=== PATIENT | male | born 1960 | race Caucasian/White ===

== ENCOUNTER 2021-02-22 16:02 | Emergency (ER) | payer OTHER ==
[~2021-02-22] VITALS: Ht 177.8 cm; Wt 84.1 kg
[~2021-02-22 16:02] MED LIST: HYDR25TA PO; LISI20TA24 PO; SIMV-259 PO
[2021-02-22 16:06] VITALS: BP 140/85
[2021-02-22] MEDS ORDERED: METF-911 PO (16:11)
[2021-02-22] MEDS ORDERED: LISI-894 PO (16:11)
[2021-02-22] MEDS ORDERED: AMLO2.5T96 PO (16:11)
[2021-02-22] MEDS ORDERED: METO50 PO (16:11)
== END 2021-02-22 17:45 | disposition home or self-care (01) ==
LOC: EMS 16:06
DX: J06.9 Acute upper respiratory infection, unspecified (principal)
CPT/HCPCS: 71045; 82962; 99283; 99284; U0003

== ENCOUNTER 2021-08-14 09:29 | Emergency (ER) | payer OTHER ==
[~2021-08-14] VITALS: Ht 180.3 cm; Wt 102.0 kg
[~2021-08-14 09:29] MED LIST changes: +AMLO2.5T96 PO; -HYDR25TA PO; +LISI-894 PO; -LISI20TA24 PO; +METF-911 PO; +METO50 PO; -SIMV-259 PO
[2021-08-14] MEDS ORDERED: KETOROLAC TROMETHAMINE 60 MG/2 ML VIAL IM ONE (10:45)
[2021-08-14 12:56] VITALS: BP 120/81
== END 2021-08-14 13:26 | disposition home or self-care (01) ==
LOC: EMS 09:35
DX: G89.29 Other chronic pain (principal); M54.50 Low back pain, unspecified; M54.6 Pain in thoracic spine; E11.9 Type 2 diabetes mellitus without complications; I10 Essential (primary) hypertension; Z79.84 Long term (current) use of oral hypoglycemic drugs; Z79.899 Other long term (current) drug therapy
CPT/HCPCS: 72070; 72100; 96372; 99284; J1885

== ENCOUNTER 2023-07-03 05:15 | Emergency (ER) | payer OTHER ==
[~2023-07-03] VITALS: Ht 180.3 cm; Wt 97.7 kg
[~2023-07-03 05:15] MED LIST changes: +METF-81 PO; -METF-911 PO
[2023-07-03 05:21] VITALS: TEMP 98.2
[2023-07-03 05:46] LABS: GLUCOMETER DEV NAME(LOC) ERT.5; GLUCOSE,POINT OF CARE 106 MG/DL (70-110)
[2023-07-03] MEDS ORDERED: GELATIN SPONGE,ABSORBABLE 50 MM TP ONE ×2 (06:45→08:15)
[2023-07-03 08:22] VITALS: BP 140/90; PULSE 75; RESP 18
== END 2023-07-03 09:06 | disposition home or self-care (01) ==
LOC: EMS 05:17
DX: K91.840 Postprocedural hemorrhage of a digestive system organ or structure following a digestive system procedure (principal); E11.9 Type 2 diabetes mellitus without complications; I10 Essential (primary) hypertension; Z98.890 Other specified postprocedural states
CPT/HCPCS: 82962; 99283

== ENCOUNTER 2024-08-13 08:55 | Emergency (ER) | payer OTHER ==
[~2024-08-13] VITALS: Ht 180.3 cm; Wt 100.0 kg
[2024-08-13 09:13] VITALS: TEMP 98.5
[2024-08-13] MEDS ORDERED: METF-1211 PO (09:15)
[2024-08-13] MEDS ORDERED: AMLO10TA55 PO (09:15)
[2024-08-13] MEDS ORDERED: METO-391 PO (09:15)
[2024-08-13] MEDS ORDERED: ATOR20TA65 PO (09:15)
[2024-08-13] MEDS ORDERED: LISI40TA9 PO (09:15)
[2024-08-13] MEDS ORDERED: ASPI-1444 PO (09:15)
[2024-08-13] MEDS: METHOCARBAMOL 500 MG TABLET PO ONE (12:45)
[2024-08-13] MEDS: IBUPROFEN 600 MG TABLET PO ONE (12:45)
[2024-08-13] MEDS: ACETAMINOPHEN 500 MG TABLET PO ONE (12:46)
[2024-08-13] MEDS ORDERED: ACET-66 PO (13:48)
[2024-08-13] MEDS ORDERED: IBUP-1554 PO (13:48)
[2024-08-13] MEDS ORDERED: METH-659 PO (13:48)
[2024-08-13 14:09] VITALS: BP 137/77; PULSE 73; RESP 18; O2SAT 99
== END 2024-08-13 14:15 | disposition home or self-care (01) ==
LOC: EMS 08:55 → UNDOADMIN 13:43 → EDH 13:43 → EMS 14:15
DX: G89.29 Other chronic pain (principal); M54.50 Low back pain, unspecified; E11.9 Type 2 diabetes mellitus without complications; I10 Essential (primary) hypertension
CPT/HCPCS: 72100; 99284; Z7502; Z7610

== ENCOUNTER 2024-09-06 22:01 | Emergency (ER) | payer OTHER ==
[~2024-09-06] VITALS: Ht 180.3 cm; Wt 97.3 kg
[~2024-09-06 22:01] MED LIST changes: +ACET-66 PO; +AMLO10TA55 PO; -AMLO2.5T96 PO; +ASPI-1444 PO; +ATOR20TA65 PO; +IBUP-1554 PO; -LISI-894 PO; +LISI40TA9 PO; +METF-1211 PO; -METF-81 PO; +METH-659 PO; +METO-391 PO; -METO50 PO
[2024-09-06 22:52] VITALS: TEMP 98.3
[2024-09-06] MEDS: ACETAMINOPHEN 325 MG TABLET PO ONE (23:00)
[2024-09-06 23:21] LABS: BASOPHILS % (AUTO) 0.4 % (0.0-2.0); EOSINOPHILS % (AUTO) 4.2 % (1.0-6.0); HEMATOCRIT 36.8 % (41-53); HEMOGLOBIN 12.3 g/dL (13.5-17.5); LYMPHOCYTES % (AUTO) 25.3 % (22.0-44.0); MEAN CORPUSCULAR HEMOGLOBIN 27.9 pg (26.0-34.0); MEAN CORPUSCULAR HGB CONC 33.4 G/dL (31.0-37.0); MEAN CORPUSCULAR VOLUME 84 fL (80-100); MONOCYTES % (AUTO) 12.7 % (2.0-9.0); NEUTROPHILS # (AUTO) 4.5 K/uL (1.8-7.7); NEUTROPHILS % (AUTO) 57.4 % (40.0-70.0); PLATELET COUNT (AUTO) 254 K/uL (150-450); RED CELL DISTRIBUTION WIDTH 13.6 % (11.5-14.5); WHITE BLOOD COUNT (AUTO) 7.9 K/uL (4.5-11.0)
[2024-09-06 23:31] LABS: ANION GAP 6 mmol/L (8-16); CALCIUM, TOTAL 8.5 mg/dL (8.8-10.5); CARBON DIOXIDE 29 mmol/L (22-29); CHLORIDE 102 mmol/L (98-107); CREATININE 0.88 mg/dL (0.60-1.30); GLOMERULAR FILTR. RATE CALC > 60 mL/min (>60); GLUCOSE,RANDOM 104 mg/dL (70-110); POTASSIUM 3.5 mmol/L (3.5-5.1); SODIUM SERUM 137 mmol/L (136-145); UREA NITROGEN, BLOOD 16 mg/dL (7-18)
[2024-09-06 23:50] LABS: B-TYPE NATRIURETIC PEPTIDE 8 pg/mL (0-100)
[2024-09-07 01:47] VITALS: BP 174/102; PULSE 70; RESP 18; O2SAT 97
[2024-09-07] MEDS: LISINOPRIL 10 MG TABLET PO ONE (02:31)
== END 2024-09-07 02:45 | disposition home or self-care (01) ==
LOC: EMS 22:01
DX: M79.89 Other specified soft tissue disorders (principal); E11.51 Type 2 diabetes mellitus with diabetic peripheral angiopathy without gangrene; I10 Essential (primary) hypertension; Z98.890 Other specified postprocedural states; Z79.84 Long term (current) use of oral hypoglycemic drugs; Z79.82 Long term (current) use of aspirin
CPT/HCPCS: 80048; 83880; 85025; 85379; 99284